=== PATIENT | female | born 1995 | race African-American/Black ===

== ENCOUNTER → 2021-01-21 12:08 | Outpatient (CLI) | payer OTHER, SELFPAY ==
--- NOTE | ~2021-01-21 | XR_ITS ---
XR chest 2V DATE: 01/21/2021 12:29 INDICATION: Preoperative evaluation TECHNIQUE: PA and lateral views COMPARISON: None FINDINGS: There is dextroscoliosis of the thoracic spine. Normal heart size. No hilar or mediastinal enlargement. No pulmonary infiltrate or consolidation, ple ural effusion or pulmonary vascular congestion or pneumothorax. IMPRESSION: No active cardiopulmonary disease Reviewed, dictated and finalized at location A.
== END ==
DX: Z01.818 Encounter for other preprocedural examination (principal)
CPT/HCPCS: 71046